=== PATIENT | male | born 1970 | race Caucasian/White ===

== ENCOUNTER 2021-09-08 17:42 | Emergency (ER) | payer BC ==
[2021-09-08] MEDS ORDERED: predniSONE 20 MG Tab PO ONE (19:56)
[2021-09-08] MEDS ORDERED: traMADol 50 MG Tab PO ONE (19:58)
== END 2021-09-08 20:20 | disposition home or self-care (01) ==
LOC: JD.ED 17:42
DX: L98.9 Disorder of the skin and subcutaneous tissue, unspecified (principal); M19.90 Unspecified osteoarthritis, unspecified site
CPT/HCPCS: 36415; 80053; 83735; 85025; 85652; 86140; 99283; A9270; J7512; 99284